=== PATIENT | female | born 1950 ===

== ENCOUNTER 2020-07-01 13:17 | Emergency (ER) | payer OTHER ==
[~2020-07-01] VITALS: Ht 160 cm; Wt 68.0 kg
[2020-07-01] MEDS ORDERED: LISINOPRIL10 MG (13:40)
[2020-07-01] MEDS ORDERED: TENORMIN50 M1 (13:40)
[2020-07-01] MEDS ORDERED: ATORVASTATIN CA20 MG (13:42)
[2020-07-01] MEDS ORDERED: ATIVAN0.5 M1 (13:42)
[2020-07-01] MEDS ORDERED: VISTARIL50 MG PO (15:59)
== END 2020-07-01 17:08 | disposition home or self-care (01) ==
LOC: ER 13:17
DX: I95.2 Hypotension due to drugs (principal); R00.2 Palpitations; T46.4X5A Adverse effect of angiotensin-converting-enzyme inhibitors, initial encounter; T44.7X5A Adverse effect of beta-adrenoreceptor antagonists, initial encounter; Y92.098 Other place in other non-institutional residence as the place of occurrence of the external cause

== ENCOUNTER 2020-08-02 20:42 | Emergency (ER) | payer OTHER ==
[~2020-08-02] VITALS: Ht 160 cm; Wt 67.1 kg
[~2020-08-02 20:42] MED LIST: ATIVAN0.5 M1; ATORVASTATIN CA20 MG; LISINOPRIL10 MG; TENORMIN50 M1; VISTARIL50 MG PO
== END 2020-08-02 21:32 | disposition home or self-care (01) ==
LOC: ER 20:42
DX: R07.89 Other chest pain (principal); K21.9 Gastro-esophageal reflux disease without esophagitis